=== PATIENT | female | born 1955 | race African-American/Black ===

== ENCOUNTER 2019-03-13 12:35 | Observation (INO) ==
[2019-03-13] MEDS ORDERED: MORPHINE IV ONE ×2 (12:49→13:26)
[2019-03-13] MEDS ORDERED: NITROGLYCERIN TOP ONE (12:50)
--- NOTE | 2019-03-13 13:04 | Diag Imaging Result Doc PS360 ---
CHEST-PORTABLE - 03/13/2019 INDICATION: chest pain COMPARISON: 02/04/2018 FINDINGS: The lungs are normally expanded and clear. Heart size and mediastinal contours are normal. No pneumothorax or pleural effusion. IMPRESSION: Negative exam. Electronically signed by Nito Issa 03/13/2019 1:01 PM
[2019-03-13] MEDS ORDERED: LABETALOL IV ONE (13:12)
[2019-03-13 13:42] LABS: BASO# 0.02 X1000 (0.0-0.2); BASO% 0.3 % (0.0-0.8); EOS# 0.26 X1000 (0.0-0.7); EOS% 4.1 % (0.0-10.0); HEMATOCRIT 29.2 % (37.0-47.0); IMM GRAN# 0.02 X1000 (0.0-0.04); IMM GRAN% 0.3 % (0.0-0.5); LYMPH% 26.9 % (20.5-51.1); MCH 26.2 PG (27-31); MCHC 30.8 g/dL (33-37); MCV 85.1 FL (81-99); MONO# 0.25 X1000 (0.11-0.59); MPV 9.1 FL (7.4-10.4); NEUT# 4.07 X1000 (1.4-6.5); NEUT% 64.4 % (42.2-75.2); PLT 360 X1000 (130-400); RBC 3.43 XMIL (4.2-5.4); RDW 13.9 % (11.5-14.5); WBC 6.32 X1000 (4.8-10.8)
[2019-03-13 13:48] LABS: INR 1.07
[2019-03-13 13:49] LABS: PTT 28.2 Seconds (22.3-41.8)
--- NOTE | 2019-03-13 13:51 | EKG Report ---
Test Performed on : 03/13/2019 1:02:29 PM Test Reason : chest pain Blood Pressure : / mmHG Vent. Rate : 079 BPM Atrial Rate : 079 BPM P-R Int : 156 ms QRS Dur : 084 ms QT Int : 412 ms P-R-T Axes : 075 057 057 degrees QTc Int : 472 ms Normal sinus rhythm. Nonspecific T wave abnormality Prolonged QT Abnormal ECG When compared with ECG of 22-DEC-2017 13:55, Non-specific change in ST segment in Anterior leads Nonspecific T wave abnormality no longer evident in Anterior leads QT has lengthened Unconfirmed Result
[2019-03-13] MEDS ORDERED: DILAUDID IV ONE (14:06)
[2019-03-13 14:09] LABS: AGAP 12; ALB/GLOB RATIO 1.2; ALBUMIN 3.5 g/dL (3.5-5.0); ALKALINE PHOSPHATASE 99 U/L (32-104); BUN 42 mg/dL (8-22); CALCIUM 8.2 mg/dL (8.8-10.2); CHLORIDE 105 mmol/L (98-107); COSMO 297; ESTIMATED GFR 19; GLUCOSE 261 mg/dL (70-104); GOT 10 U/L (10-30); GPT 12 U/L (10-36); LIPASE 26 U/L (13-60); POTASSIUM 5.2 mmol/L (3.5-5.1); SODIUM 139 mmol/L (136-145); TCO2 22 mmol/L (25-35); TOTAL BILIRUBIN < 0.15 mg/dL (0.20-1.00); TOTAL PROTEIN 6.5 g/dL (6.3-8.3)
--- NOTE | 2019-03-13 14:57 | PROVIDER DOCUMENTATION ---
This chart was entered by Katya Echavarria Scribe, acting as scribe for Ralf Wilson MD. HPI-Chest Pain - General Stated Complaint: CP/SOB Time Seen by Provider: 03/13/19 12:39 Source: patient Allergies/Adverse Reactions: Patient Allergies Allergy/AdvReac Type Severity Reaction Status Date / Time acetaminophen Allergy Unknown Verified 09/18/18 14:11 [From Darvocet-N] clonidine Allergy Unknown Verified 09/18/18 14:11 propoxyphene Allergy Unknown Verified 09/18/18 14:11 [From Darvocet-N] codeine AdvReac ITCHING Verified 09/18/18 14:11 Home Medications: Home Medication List Medication Instructions Recorded Confirmed Last Taken Type Diltiazem HCl [Diltiazem ER] 360 mg PO DAILY 12/22/17 03/13/19 Unknown History Furosemide 40 mg PO DAILY 12/22/17 03/13/19 Unknown History Irbesartan/Hydrochlorothiazide 1 each PO DAILY 12/22/17 09/06/18 Unknown History [Irbesartan-Hctz 300-12.5 mg Tb] Levothyroxine [Synthroid] 25 microgm PO DAILY 12/22/17 03/13/19 Unknown History Metformin [Glucophage] 1,000 mg PO DAILY 12/22/17 09/06/18 Unknown History - History of Present Illness-CP Nature of Presenting Problem: Patient is a 63 year old female who presents to the ED via EMS with chest pain. States nausea, vomiting and shortness of breath with chest pain. Reports symptoms started this morning at 1100. States taking 2 nitros prior to EMS arrival. EMS placed the patient on 2 L of O2 and gave the patient 325 mg of aspirin. History of CAD. Reports having a left side heart cath which showed a blockage. Location: reports: substernal Chest Pain Radiation: reports: no radiation Quality of Pain: reports: dull, pressure Severity in ED: mild Onset/Duration: this afternoon (1100) Timing: still present Context/Activities at Onset: reports: light activity Associated Symptoms: reports: nausea, shortness of breath, vomiting Nitro Today/Relief: 0.4 mg x 2, provided at home, no relief Aspirin Treatment Today: 325 mg x 1, provided by EMS Prior Chest Pain/Cardiac Workup: reports: cardiac cath Similar Symptoms Previously?: Yes Recently Seen Here or By Another Healthcare Provider: No Review of Systems - Adult - REVIEW OF SYSTEMS - ADULT ROS:: limited per condition Constitutional: reports: no symptoms reported Eyes: reports: no symptoms reported Ears, Nose, Mouth & Throat: reports: no symptoms reported Cardiovascular: reports: see HPI, chest pain Respiratory: reports: see HPI, shortness of breath Gastrointestinal: reports: no symptoms reported Genitourinary: reports: no symptoms reported Musculoskeletal: reports: no symptoms reported Integumentary: reports: no symptoms reported Neurological: reports: no symptoms reported Psychiatric: reports: no symptoms reported Endocrine: reports: no symptoms reported Hematologic/Lymphatic: reports: no symptoms reported Allergic/Immunologic: reports: no symptoms reported All Other Systems: Reviewed and Negative Past History - Adult - PAST MEDICAL HISTORY-ADULT Review of Records: reports: Old Records Reviewed, Nursing Assessment Review, Medications Reviewed, Social history reviewed & non-contributory. Major Childhood Illnesses: reports: denies history Cardiovascular: reports: CAD, HTN, hyperlipidemia Respiratory: reports: sleep apnea Gastrointestinal: reports: denies history Obstetrical/Gynecological: reports: denies history Genitourinary: reports: denies history Musculoskeletal: reports: denies history Neurological: reports: denies history Psychiatric: reports: anxiety Endocrine/Immune: reports: Diabetes, thyroid disorder Other Conditions: reports: denies history - PRIOR SURGERIES/PROCEDURES Surgical/Procedure History: reports: BTL, hernia repair - IMMUNIZATION STATUS Childhood Immunizations: See Nurse Assessment Flu Vaccine: See Nurse Assessment - FAMILY HISTORY Family History: reviewed, not pertinent - SOCIAL HISTORY Smoking: denies Substance Use: denies Physical Exam-General - PHYSICAL EXAM-ADULT Initial Vital Signs Reviewed: Yes - CONSTITUTIONAL General Appearance: alert, other (Mcdonald sign present) - RESPIRATORY Respiratory: chest non-tender, lungs clear, normal breath sounds - CARDIOVASCULAR Cardiovascular: regular rate, rhythm, no gallop, no murmur - GASTROINTESTINAL (ABDOMEN) Abdominal Exam: normal bowel sounds, non tender, soft - MUSCULOSKELETAL Extremity: non-tender, normal inspection, no pedal edema - SKIN Integumentary: normal color, normal turgor, warm/dry - NEUROLOGIC Neurologic: grossly normal - PSYCHIATRIC Psych/Mental Status: normal mood/affect, normal thought content, normal thought process, oriented x 3 - HEART Score HEART Score: History: Moderately Suspicious HEART Score: ECG: Normal HEART Score: Age: > or = 65 Years HEART Score: Risk Factors for Atherosclerotic Disease: > or = 3 Risk Factors or History of Atherosclerotic Disease HEART Score: Troponin: 1-3x Normal Limit Total HEART Score:: 6 Progress - PLAN OF CARE/RESULTS Progress/Plan/Lab Results: Vital Signs - 8 hr 03/13/19 12:53 Temperature 97.6 F Pulse Rate 84 Respiratory Rate 18 Blood Pressure 181/109 O2 Sat by Pulse Oximetry 100 Laboratory Results - last 24 hr 03/13/19 03/13/19 03/13/19 13:30 13:30 13:30 WBC 6.32 RBC 3.43 L Hgb 9.0 L Hct 29.2 L MCV 85.1 MCH 26.2 L MCHC 30.8 L RDW Std Deviation 13.9 Plt Count 360 MPV 9.1 Immature Gran % (Auto) 0.3 Neut % (Auto) 64.4 Lymph % (Auto) 26.9 Tripp % (Auto) 4.0 Eos % (Auto) 4.1 Baso % (Auto) 0.3 Immature Gran # (Auto) 0.02 Neut # (Auto) 4.07 Lymph # (Auto) 1.70 Tripp # (Auto) 0.25 Eos # (Auto) 0.26 Baso # (Auto) 0.02 PT INR PTT (Actin FS) Sodium 139 Potassium 5.2 H Chloride 105 Carbon Dioxide 22 L Anion Gap 12 BUN 42 H Creatinine 3.0 H Estimated GFR/1.73 m2 19 BUN/Creatinine Ratio 14 Glucose 261 H Calculated Osmolality 297 Calcium 8.2 L Total Bilirubin < 0.15 L AST 10 ALT 12 Alkaline Phosphatase 99 Troponin T High Sens 42 H Dzy-R-Slatzfwbmtz Pept Total Protein 6.5 Albumin 3.5 Globulin 3.0 Albumin/Globulin Ratio 1.2 Lipase 26 03/13/19 03/13/19 13:30 13:30 WBC RBC Hgb Hct MCV MCH MCHC RDW Std Deviation Plt Count MPV Immature Gran % (Auto) Neut % (Auto) Lymph % (Auto) Tripp % (Auto) Eos % (Auto) Baso % (Auto) Immature Gran # (Auto) Neut # (Auto) Lymph # (Auto) Tripp # (Auto) Eos # (Auto) Baso # (Auto) PT 14.0 INR 1.07 PTT (Actin FS) 28.2 Sodium Potassium Chloride Carbon Dioxide Anion Gap BUN Creatinine Estimated GFR/1.73 m2 BUN/Creatinine Ratio Glucose Calculated Osmolality Calcium Total Bilirubin AST ALT Alkaline Phosphatase Troponin T High Sens Fbl-V-Ojkvzffwfvt Pept 231 Total Protein Albumin Globulin Albumin/Globulin Ratio Lipase Orders Category Date Time Status Z-Document. for Tele Applied ORDERED Care 03/13/19 14:47 Active CHEST-PORTABLE [RAD] Stat Exams 03/13/19 12:49 Completed BNP [PRO B-NATRIURETIC PEPTIDE] Stat Lab 03/13/19 13:30 Completed CBC WITH ELECTRONIC DIFF [HEME] Stat Lab 03/13/19 13:30 Completed CMP [COMPREHENSIVE METABOLIC PANEL] [CHEM] Stat Lab 03/13/19 13:30 Completed D-DIMER [COAG] Stat Lab 03/13/19 14:51 Uncollected LIPASE [CHEM] Stat Lab 03/13/19 13:30 Completed PROTIME WITH INR [COAG] Stat Lab 03/13/19 13:30 Completed PTT [COAG] Stat Lab 03/13/19 13:30 Completed TROPONIN T HIGH SENSITIVITY Stat Lab 03/13/19 13:30 Completed TROPONIN T HIGH SENSITIVITY Stat Lab 03/13/19 15:30 Uncollected Hydromorphone [Dilaudid] Med 03/13/19 14:06 Discontinued 1 mg IV NOW ONE Labetalol Med 03/13/19 13:12 Discontinued 20 mg IV NOW ONE Morphine Med 03/13/19 12:49 Discontinued 4 mg IV NOW ONE Morphine Med 03/13/19 13:26 Discontinued 4 mg IV NOW ONE Nitroglycerin Med 03/13/19 12:50 Discontinued 0.5 inch TOP NOW ONE EKG [EKG] Stat Ther 03/13/19 12:48 Draft EKG [EKG] Stat Ther 03/13/19 15:30 Ordered Transfer/Admit Order [TRANSFER] Routine Transfer 03/13/19 14:[address] Deangelo Nam PCP and the patient will be admitted under observation status for intractable chest pain with an overall benign work up. She had coronary artery disease risk factors with hypertension and insulin dependent diabetes mellitus and hyperlipidemia. Her initial EKG was benign. HEART score elevated. Given nitroglycerin then morphine then dilaudid for continued chest pain. Patient and family members aware. Result Diagrams: 03/13/19 13:30 03/13/19 13:30 - EKG 1 Time of EKG reading by physician:: 13:02 EKG Read and Signed by:: Polo Brooks EKG Interpretation (*Must complete 3 of following elements*): Abnormal Rate: 79 Rhythm: NSR [place]: normal [place] Interval: normal Comments: prolonged QT - XRAY 1 XRAY Study: Chest Impression: See EMR Report ( CHEST-PORTABLE - 03/13/2019 INDICATION: chest pain COMPARISON: 02/04/2018 FINDINGS: The lungs are normally expanded and clear. Heart size and mediastinal contours are normal. No pneumothorax or pleural effusion. IMPRESSION: Negative exam. Electronically signed by Nito Issa 03/13/2019 1:01 PM 03/13/19 1301 Interpreting Physician: Nito Issa MD Dictated Date/Time: 03/13/19 1301 cc: Ralf Wilson MD; Fuad Porter MD) - CONSULTS/PCP/HOSPITALIST Notification #1 *Consult/PCP/Hospitalist*: Deangelo Nam PCP Time Discussed: 14:54 Consult Disposition: Admit Departure - Departure Date of Disposition Decision: 03/13/19 Time of Disposition Decision: 14:56 DIAGNOSIS: Atypical chest pain, IDDM (insulin dependent diabetes mellitus), Accelerated hypertension, Hyperlipidemia Disposition: ADMITTED INPATIENT 09 Certified Medical Emergency: Emergent Condition: Fair Referrals and Follow-Ups: Fuad Porter MD [Primary Care Provider] - - Critical Care Note This patient required my direct & personal management of CC.: No Attestation - Physician/ ALEXEI Attestation Patient care was provided by Advanced Practice Provider:: No The physician spent face to face time with patient:: Yes Advanced Practice Provider documentation review:: Supervising physician onsite and consulted in the evaluation and care of this patient. The physician did have a face to face encounter with the patient. This chart was documented by the indicated scribe, (Katya Echavarria Scribe) and accurately reflects the services I performed and decisions made by me, Ralf Wilson MD, as attested by the provider's signature.
[2019-03-13] MEDS ORDERED: SODIUM CHLORIDE 0.9% INJ PRN (15:10)
[2019-03-13] MEDS ORDERED: PHENERGAN IV PRN (15:10)
[2019-03-13] MEDS ORDERED: TYLENOL PO PRN (15:10)
[2019-03-13] MEDS ORDERED: LABETALOL IV PRN (15:16)
[2019-03-13] MEDS ORDERED: CARDIZEM CD PO ONE (15:21)
[2019-03-13] MEDS: LOVENOX SUBQ SCH (16:02)
--- NOTE | 2019-03-13 19:02 | HISTORY AND PHYSICAL ---
HISTORY OF PRESENT ILLNESS: Mrs. Tracy Chang is a 63-year-old lady who is well known to me. She has a history of multiple medical problems including essential hypertension, mixed hyperlipidemia, type 2 insulin-dependent diabetes mellitus complicated by peripheral neuropathy, renal cell cancer status post radical nephrectomy, mild cognitive impairment and lumbar spinal stenosis with neurogenic claudication. She presented to the ER complaining of substernal chest pressure and tightness with radiation of pain to her neck and arm. On 07/06/2018 she had a Lexiscan which demonstrated a low-grade reversible perfusion defect in the distal anterior apical wall suggestive of ischemia. She had a followup arteriogram which demonstrated a small caliber LAD which was not amenable to surgery. She was started on Ranexa 500 mg b.i.d. Her blood pressure has been quite labile. Systolic blood pressures have been in the range of 180 to 210, whereas her diastolic blood pressure ranged from 80 to 110. PAST MEDICAL HISTORY: As above. PAST SURGICAL HISTORY: Radical nephrectomy, lumbar fusion, laparoscopic cholecystectomy, umbilical hernia repair. ALLERGIES: Clonidine, codeine, and Darvocet. FAMILY HISTORY: Her mother had known ischemic heart disease status post [place], hypertension and at age 53. Her father had hypertension and coronary artery disease. Her paternal grandfather had coronary artery disease. Paternal grandmother had coronary artery disease. A brother had lung cancer. SOCIAL HISTORY: She has never smoked. She does not consume alcoholic beverages. She is and lives with her spouse. REVIEW OF SYSTEMS: She denies any recent weight gain or weight loss.HEENT: She wears glasses. CV: See HPI. Pulmonary: See HPI. GI: No reflux, dysphagia, melena or hematochezia. Endocrine: No polyuria, no polydipsia. Skin: No easy bruisability. : No leakage of urine with coughing or laughing. Neuro: No migraines or seizures. Psychiatric: No history of depression. This is a well-developed, well-nourished 63-year-old lady in no apparent distress. She is afebrile. Blood pressure 210/90, respiratory rate 14, pulse 85. She is afebrile. HEENT: Fundi with arteriolar wall thickening. Pupils equal, round, reactive to light, extraocular eye movements intact. TMs without bullae. Neck: Supple. No masses, JVD or bruits. CV: Regular rate and rhythm. Lungs: Clear. Abdomen: Soft, nontender with active bowel sounds. No hepatosplenomegaly. No abdominal bruits. Extremities: Without edema. Skin: No palpable purpura. Neuro: Decreased light touch in the distal extremities bilaterally. ASSESSMENT AND PLAN: 1. Unstable angina in the face of known ischemic heart disease. Previous coronary arteriogram demonstrate a small caliber left anterior descending with distal blockage, not amenable to intervention. I suspect that her labile hypertension is driving her chest pain. I will admit her to [facility] where I will treat her with topical nitrates, Lovenox 1 mg/kg subcu b.i.d. and will increase the Ranexa to 1000 mg b.i.d. She has not taken any of her blood pressure medicines this morning. I will give her regular dosage of diltiazem, Toprol and valsartan. 2. Type 2 insulin-dependent diabetes mellitus complicated by polyneuropathy. We will place her on pattern sugars, Humulin R sliding scale and resume her Humulin 70/30 40 units in the morning and 35 units at night. 3. Chronic renal insufficiency. Her creatinine has jumped from 2.5 to 3.0. I will give her normal saline at 75 mL per hour x1 L. I will recheck a BMP in the morning. Given the patient's comorbid conditions and clinical presentation, I believe that it is reasonable to admit her to [facility]. I anticipate that she will be in the hospital for at least 1 midnight and I will therefore place her in outpatient status with observation services. cc: Crystal Porter MD
[2019-03-13] MEDS: FOLIC ACID IV SCH ×6 (21:00)
[2019-03-13] MEDS: THIAMINE IV SCH ×6 (21:00)
[2019-03-13] MEDS ORDERED: LOPRESSOR PO SCH (21:00)
[2019-03-13] MEDS ORDERED: RESTORIL PO PRN (21:00)
[2019-03-13] MEDS ORDERED: AUGMENTIN PO SCH (21:00)
[2019-03-13] MEDS: [UNRECOGNIZED DRUG - OTHER] IV SCH ×6 (21:00)
[2019-03-13] MEDS: MAGNESIUM SULFATE IV SCH ×6 (21:00)
[2019-03-13] MEDS ORDERED: PRAVACHOL PO SCH (21:00)
[2019-03-13] MEDS: POTASSIUM CHLORIDE IV SCH ×6 (21:00)
[2019-03-13] MEDS ORDERED: LYRICA PO SCH (21:00)
[2019-03-13] MEDS ORDERED: RANEXA PO SCH (21:00)
[2019-03-13] MEDS: RANEXA PO SCH (21:03)
[2019-03-13] MEDS: AUGMENTIN PO SCH (21:03)
[2019-03-13] MEDS: HUMULIN R SUBQ SCH (21:04)
[2019-03-13] MEDS: NITROGLYCERIN TOP SCH (21:06)
[2019-03-14] MEDS: NITROGLYCERIN TOP SCH ×3 (03:55→13:35)
[2019-03-14] MEDS: LOVENOX SUBQ SCH (03:56)
[2019-03-14] MEDS ORDERED: MORPHINE IV ONE (04:43)
--- NOTE | 2019-03-14 04:51 | EKG Report ---
Test Performed on : 03/14/2019 04:29:04 AM Test Reason : chest pain Blood Pressure : / mmHG Vent. Rate : 083 BPM Atrial Rate : 083 BPM P-R Int : 156 ms QRS Dur : 080 ms QT Int : 350 ms P-R-T Axes : 088 060 074 degrees QTc Int : 411 ms Normal sinus rhythm. Septal infarct , age undetermined Abnormal ECG When compared with ECG of 13-MAR-2019 13:02, (Unconfirmed) Septal infarct is now present Non-specific change in ST segment in Anterior leads Nonspecific T wave abnormality now evident in Anterior leads QT has shortened Unconfirmed Result
[2019-03-14 05:45] LABS: CALCIUM 8.3 mg/dL (8.8-10.2); CREATININE 2.8 mg/dL (0.5-0.9); POTASSIUM 4.9 mmol/L (3.5-5.1)
[2019-03-14] MEDS: CARDIZEM CD PO SCH ×2 (06:26→08:23)
[2019-03-14] MEDS: RANEXA PO SCH ×2 (06:26→08:24)
[2019-03-14] MEDS: AUGMENTIN PO SCH ×2 (06:27→08:23)
[2019-03-14] MEDS: FOLIC ACID PO SCH ×2 (06:27→08:23)
[2019-03-14] MEDS: LOPRESSOR PO SCH ×2 (06:27→08:24)
[2019-03-14] MEDS: TOPROL XL PO SCH ×2 (06:27→08:23)
[2019-03-14] MEDS: AVAPRO PO SCH ×2 (06:28→08:22)
[2019-03-14] MEDS: MORPHINE IV PRN ×2 (06:35→10:27)
[2019-03-14 06:44] LABS: CK INDEX 8.6 (0.0-2.5); CK-MB 45.01 ng/mL (0.0-5.0)
[2019-03-14] MEDS ORDERED: SYNTHROID PO SCH (07:00)
[2019-03-14] MEDS ORDERED: HUMULIN 70/30 SUBQ SCH ×3 (07:00→16:00)
[2019-03-14] MEDS: HUMULIN R SUBQ SCH ×2 (08:25→11:17)
[2019-03-14] MEDS ORDERED: LOPRESSOR PO SCH ×2 (09:00→10:30)
[2019-03-14] MEDS ORDERED: HYDROCHLOROTHIAZIDE PO SCH ×2 (09:00)
[2019-03-14] MEDS ORDERED: [UNRECOGNIZED DRUG - OTHER] PO SCH (09:00)
[2019-03-14] MEDS ORDERED: IRBESARTAN PO SCH (09:00)
--- NOTE | 2019-03-14 09:24 | PROGRESS NOTE ---
DATE: 03/14/2019 Ms. Chang has a history of known ischemic heart disease. She had a cardiac catheterization in July 2018, which demonstrated a small caliber LAD, which was not amenable to intervention. Dr. Brizuela started her on Ranexa. She presented to the ER yesterday complaining of chest pain. She has ruled in for myocardial ischemia by serial enzymes. She has had intermittent episodes of chest pain throughout the night. Her most recent high sensitivity troponin was 1113. Her CPK was 526. She has a longstanding history of hypertension. Her blood pressure is still too high, but is trending down. This morning, her blood pressure was 181/78. She does have a history of type 2 insulin-dependent diabetes mellitus. Blood sugars are ranging from 172 to 283. OBJECTIVE: Vital Signs: Temperature 97 degrees, pulse 90, respirations 26, BP 181/78. CV: Regular rate and rhythm. Lungs: Clear. Abdomen: Soft, nontender with active bowel sounds. No hepatosplenomegaly. No abdominal bruits. ASSESSMENT AND PLAN: 1. Non ST-segment elevation [place] in the setting of known ischemic heart disease. She continues with intermittent episodes of chest pain, particularly with exertion. We will continue topical nitrates, subcu Lovenox and I will titrate upward on the metoprolol to 50 mg b.i.d. I increased her Ranexa to 1000 mg b.i.d. yesterday. I have spoken to Dr. Vitaly Egan this morning who will see her in consultation. We will use morphine on a p.r.n. basis for continued chest pain. 2. Hypertension. I suspect that her elevated blood pressure is driving some of the chest pain. I will increase the metoprolol to 50 mg b.i.d., and we will monitor her blood pressure closely. 3. Chronic renal failure. Her baseline creatinine is around 2.5. Her creatinine has dropped from 3.0 to 2.8 since admission. We will continue gentle fluid resuscitation and monitor her kidney function and urine output. 4. Type 2 insulin-dependent diabetes mellitus. We will continue pattern sugars, Humulin R sliding scale and her regular home dosage of insulin. cc: Crystal Porter MD
[2019-03-14] MEDS ORDERED: NORVASC PO SCH (10:15)
--- NOTE | 2019-03-14 10:46 | CARDIOLOGY CONSULTATION ---
DATE: 03/14/2019 CHIEF COMPLAINT: Chest pain. HISTORY OF PRESENT ILLNESS: Ms. Chang is a 63-year-old, black female with a history of coronary disease, chronic kidney disease, who presented with complaints of chest pain that began yesterday while at rest. It is a pressure-like discomfort in her mid chest, with really no radiation. It has been persistent since that time, with some worsening with exertion. She has had some nausea as well as shortness of breath. PAST MEDICAL HISTORY: Significant for: 1. Coronary disease, taken care of by Dr. Payne in [place]. She has a history of cardiac catheterization approximately 6 months ago, which showed a small-caliber left anterior descending with possible severe disease. She has been treated with medical therapy in relation to that. 2. Hypertension. 3. Chronic kidney disease with baseline creatinine in the mid 2's. 4. Diabetes. 5. Hypertension. 6. Hyperlipidemia. 7. Renal cell carcinoma, status post nephrectomy. 8. Lumbar spinal stenosis. SOCIAL HISTORY: She is a nonsmoker. Does not drink alcohol. She is . Her daughter is present in the room. FAMILY HISTORY: Mother had [place], hypertension, at age 53. Father had hypertension and coronary disease. REVIEW OF SYSTEMS: A 10-system review of systems is negative, except for those things mentioned in the HPI. PHYSICAL EXAMINATION: Vital Signs: She is afebrile. Her heart rate is 88, her blood pressure is 178/76 with multiple systolics above 200 since admission. General: She is in no acute distress. HEENT: Oropharynx is moist. Poor dentition. Eye examination shows pink conjunctivae, white sclerae. Neck: No obvious thyromegaly or thyroid tenderness. Cardiovascular: She sounds to be in a regular rate and rhythm. She has no obvious murmurs. She has no S3. Extremities: She has no lower extremity edema. She has warm and well-perfused extremities. Chest: Sounds clear bilaterally. She has no increased work of breathing. Abdomen: Soft, nontender, nondistended. She has no obvious organomegaly. Skin: Warm and dry throughout without any rashes. Neurological: She is moving all extremities well. She has no lateralizing deficits. PERTINENT DATA: Her chest x-ray was unremarkable for any acute findings. Her EKG on 03/13/2019 at 1302 shows sinus rhythm, nonspecific diffuse ST-T changes. Subsequent EKG on 03/14/2019 at 4:29 a.m. continues to show sinus rhythm, nonspecific diffuse ST-T changes. Her white count is 6.3, hematocrit 29, platelet count is 360,000. INR is 1.0. Sodium 140, potassium 4.9, BUN 43, creatinine is 2.8. Her troponin initially was 177, with subsequent checks going up to 1113. ASSESSMENT: Ms. Chang is a 63-year-old female who presents with non ST-elevation myocardial infarction. PLAN: Discussed the case with Dr. Payne in [place], who has agreed to accept the patient in transfer. She has had what sounds like severe LAD disease in a small-caliber vessel that was initially being treated medically. It seems at this point that she has failed that, although she has significant room to go with her antihypertensive therapy. I will increase her metoprolol to 50 every 6 hours. We will continue her on her current dose of Ranexa. I will add in amlodipine 5 mg daily. I will stop her pravastatin, and place her on high-intensity atorvastatin. We will continue her on the aspirin, and I will decrease her Lovenox to once daily given that her GFR is less than 30. Pending transfer is in [facility] for [facility]. cc: MD Crystal Lance MD
[2019-03-14] MEDS: MAGNESIUM SULFATE IV SCH ×6 (11:08)
[2019-03-14] MEDS: POTASSIUM CHLORIDE IV SCH ×6 (11:08)
[2019-03-14] MEDS: THIAMINE IV SCH ×6 (11:08)
[2019-03-14] MEDS: [UNRECOGNIZED DRUG - OTHER] IV SCH ×6 (11:08)
[2019-03-14] MEDS: FOLIC ACID IV SCH ×6 (11:08)
[2019-03-14 12:14] VITALS: BP 166/72
[2019-03-14] MEDS ORDERED: LIPITOR PO SCH (21:00)
[2019-03-15] MEDS ORDERED: LOVENOX SUBQ SCH (09:00)
== END 2019-03-14 15:02 | disposition short-term general hospital (02) ==
LOC: SUPCPDRO → ED 12:35 → EDIPHOLD 12:35 → 2N 20:36
PROVIDERS: ADMIT Internal Medicine; ATTEND Internal Medicine